=== PATIENT | male | born 1950 | race Caucasian/White ===

== ENCOUNTER 2023-08-06 15:52 | Outpatient (AMB) | payer MEDICARE, SELFPAY ==
[2023-08-06 16:17] VITALS: BP 130/72; PULSE 66; TEMP 37.3; O2SAT 98; BMI 27.1
--- NOTE | 2023-08-06 16:17 | AM.OFFWIN_ITS ---
Intake Vital Signs 08/06/23 16:17 Height 5 ft 10 in Weight 189 lb BMI 27.1 BP 130/72 Blood Pressure Location Lt brachial Position Sitting Pulse 66 Pulse Source Pulse Oximeter Temp 99.1 F Temp Source Oral Pulse Oximetry (%) 98 Oxygen Delivery Method Room Air Intake Visit Reasons: [employer] ?[facility] Intake Note: pt is here for c/o possible pink eye,denies blurred vision just sore Patient Tobacco Use Status: Never used Tobacco Allergies No Known Allergies Allergy (Verified 08/06/23 16:18) Do you need a note to return to daycare/school/sports/work: No HPI HPI Comments History of Present Illness Details 72 y/o male patient who presents to walk in clinic with c/o left eye pink and Sore since this morning. Denies vision changes. Denies headaches or URI symptoms. PFSH Social History Patient Tobacco Use Status: Never used Tobacco Physical Exam Vital Signs: Last Vital Signs Temp 99.1 F 08/06/23 16:17 Pulse 66 08/06/23 16:17 BP 130/72 08/06/23 16:17 Pulse Ox 98 08/06/23 16:17 Oxygen Delivery Method Room Air 08/06/23 16:17 BMI result Body Mass Index 27.1 Const General: comfortable and no acute distress Orientation/consciousness: patient oriented x3 HEENT Head: Yes normocephalic Eyes Eyelids: Yes eyelids normal Conjunctivae: conjunctival abnormal left conjunctival injection and discharge Pupils: Equal, round and reactive pupils present EOM: EOMs intact bilaterally Neuro General: patient oriented x3, gait normal and moves all extremities Cranial nerves: Yes Equal, round and reactive pupils present Psych Speech and movement: Normal speech and movement present Assessment & Plan Assessment & Plan (1) Conjunctivitis: Code(s): H10.9 - Unspecified conjunctivitis Qualifiers: Acute conjunctivitis type: bacterial Conjunctivitis type: acute Laterality: left Qualified Code(s): H10.32 - Unspecified acute conjunctivitis, left eye Plan: - Use medication as directed - Maintain go eye hygiene. - RTC if symptoms worse. Medications: New erythromycin Apply 1 cm ribbon into the affected eye at bedtime. 1 appl ophthalmic (eye) DAILY 3.5 grams 0RF H10.32 - Unspecified acute conjunctivitis, left eye Coding Level of Care Code New Pt Level 3 (85393) Diagnoses Acute bacterial conjunctivitis of left eye H10.32 Acute conjunctivitis type: bacterial Conjunctivitis type: acute Laterality: left Time Spent (min) 15
== END 2023-08-06 16:50 | disposition home or self-care (01) ==
PROVIDERS: PCP Family Medicine; Visit Provider Nurse Practitioner Family
DX: H10.32 Unspecified acute conjunctivitis, left eye (principal)
CPT/HCPCS: 99203